=== PATIENT | male | born 1950 | race Caucasian/White ===

== ENCOUNTER → 2017-02-10 | Outpatient (CLI) | payer OTHER ==
[~2017-02-10] MED LIST: ASPIR-LOW81 MG PO; ASPIRIN EC325 MG PO; ASPIRIN325 MG PO; CILOSTAZOL100 MG PO; CLOPIDOGREL75 MG PO; ELIQUIS5 MG PO; KLOR-CON M2020 MEQ PO; LIPITOR40 MG PO; LIPITOR80 MG PO; LISINOPRIL5 MG PO; METOPROLOL TART50 MG PO; NIASPAN,SLO-NI500 MG PO; NITROSTAT0.4 MG SL; PROTONIX40 MG PO; SOTALOL AF80 MG PO
== END | disposition home or self-care (01) ==
LOC: EKG 13:25
DX: I70.0 Atherosclerosis of aorta (principal); I05.8 Other rheumatic mitral valve diseases; I05.1 Rheumatic mitral insufficiency; I07.1 Rheumatic tricuspid insufficiency; I77.89 Other specified disorders of arteries and arterioles; R94.31 Abnormal electrocardiogram [ECG] [EKG]
CPT/HCPCS: 93306